=== PATIENT | male | born 1985 | race Caucasian/White ===

== ENCOUNTER 2017-02-04 14:44 | Inpatient (IN) | payer OTHER ==
[2017-02-04 15:52] VITALS: BMI 41.8
--- NOTE | 2017-02-04 18:03 | HP ---
COWS - Scale Resting Pulse: 1= [place] 81-100 Sweatin= Chills/Flushing Restless Observation: 3= Extraneous Movement Pupil Size: 0= Normal to Room Light Bone or Joint Aches: 2= Severe Diffuse Aches Runny Nose/ Eye Tearin= Runny Nose/Eyes GI Upset > 30mins: 2= Nausea/Diarrhea Tremor Observation: 2= Slight Tremor Visible Yawning Observation: 0= None Anxiety or Irritability: 2=Irritable/Anxious Goose Flesh Skin: 0=Smooth Skin COWS Score: [address] [facility] Chief Complaint: withdrawal sx Allergies/Adverse Reactions: Allergies Allergy/AdvReac Type Severity Reaction Status Date / Time No Known Allergies Allergy Verified 02/04/17 16:28 History of Present Illness: 32 years old male with long history of opiate nicotine dependence denies medical denies mental illness is admitted to detox Exam Limitations: No Limitations - Ebola screening Have you traveled outside of the country in the last 21 days: No Have you had contact with anyone from an Ebola affected area: No Have you been sick,other than usual withdrawal symptoms: No Do you have a fever: No - Review of Systems Constitutional: Chills, Changes in sleep, Weight Stable EENT: reports: No Symptoms Reported Respiratory: reports: No Symptoms reported Cardiac: reports: No Symptoms Reported GI: reports: Diarrhea, Nausea, Poor Fluid Intake, Indigestion, Abdominal cramping : reports: No Symptoms Reported Musculoskeletal: reports: Back Pain, Joint Pain, Muscle Pain, Neck Pain Integumentary: reports: Change in Color (both fore arms) Neuro: reports: Tremors Endocrine: reports: No Symptoms Reported Hematology: reports: No Symptoms Reported Psychiatric: reports: Judgement Intact, Mood/Affect Appropiate, Orientated x3 Other Systems: Reviewed and Negative Patient History - Patient Medical History Hx Anemia: No Hx Asthma: No Hx Chronic Obstructive Pulmonary Disease (COPD): No Hx Cancer: No Hx Cardiac Disorders: No Hx Congestive Heart Failure: No Hx Hypertension: No Hx Hypercholesterolemia: No Hx Pacemaker: No HX Cerebrovascular Accident: No Hx Seizures: No Hx Dementia: No Hx Diabetes: No Hx Gastrointestinal Disorders: Yes (Hx of GERD) Hx Liver Disease: No Hx Genitourinary Disorders: No Hx Sexually Transmitted Disorders: No Hx Renal Disease (ESRD): No Hx Thyroid Disease: No Hx Human Immunodeficiency Virus (HIV): No Hx Hepatitis C: No Hx Depression: No Hx Suicide Attempt: No Hx Bipolar Disorder: No Hx Schizophrenia: No - Patient Surgical History Past Surgical History: No - PPD History Previous Implant?: Yes Documented Results: Negative w/o proof Implanted On Prior [facility] Admission?: No PPD to be Administered?: Yes - Smoking Cessation Smoking history: Current every day smoker Have you smoked in the past 12 months: Yes Aproximately how many cigarettes per day: 40 Cigars Per Day: 0 Hx Chewing Tobacco Use: No Initiated information on smoking cessation: Yes 'Breaking Loose' booklet given: 02/04/17 - Substance & Tx. History Hx Alcohol Use: No Hx Substance Use: Yes Substance Use Type: Cocaine, Opiates Hx Substance Use Treatment: Yes - Substances Abused Heroin Route: Injection Frequency: Daily Amount used: 10 BAGS Age of first use: 31 Date of Last Use: 02/04/17 Family Disease History - Family Disease History Family Disease History: Other: Father (mva ) Admission Physical Exam S - Vital Signs Vital Signs: Vital Signs - 24 hr 02/04/17 15:50 Temperature 97.7 F Pulse Rate 92 H Respiratory 22 Rate Blood Pressure 143/90 - Physical General Appearance: Yes: Appropriately Dressed, Mild Distress, Obese, Tremorous , Irritable, Sweating, Anxious HEENTM: Yes: Hearing grossly Normal, Normal ENT Inspection, Normocephalic, Normal Voice Respiratory: Yes: Chest Non-Tender, Lungs Clear, Normal Breath Sounds, No Respiratory Distress, No Accessory Muscle Use Neck: Yes: Supple, Trachea in good position Breast: Yes: Breasts Symetrical Cardiology: Yes: Regular Rhythm, Regular Rate, S1, S2 Abdominal: Yes: Non Tender, Soft Genitourinary: Yes: Within Normal Limits Back: Yes: Normal Inspection Musculoskeletal: Yes: full range of Motion, Gait Steady, Back pain, Muscle Pain Extremities: Yes: Normal Range of Motion, Non-Tender, Tremors Neurological: Yes: Fully Oriented, Alert, Motor Strength 5/5, Normal Response, Depressed Affect Integumentary: Yes: Warm, Track [place] Lymphatic: Yes: Within Normal Limits - Diagnostic (1) Opioid dependence with withdrawal Current Visit: Yes Status: Acute (2) Cocaine dependence, uncomplicated Current Visit: Yes Status: Chronic (3) Nicotine dependence Current Visit: Yes Status: Acute Qualifiers: Nicotine product type: cigarettes Substance use status: in withdrawal Qualified Code(s): F17.213 - Nicotine dependence, cigarettes, with withdrawal (4) GERD (gastroesophageal reflux disease) Current Visit: Yes Status: Chronic Qualifiers: Esophagitis presence: without esophagitis Qualified Code(s): K21.9 - Gastro-esophageal reflux disease without esophagitis Cleared for Admission [facility] - Detox or Rehab [facility] Level of Care: Medically Managed Detox Regimen/Protocol: Methadone S Breath Alcohol Content Breath Alcohol Content: 0 Urine Drug Screen - Results Drug Screen Negative: No Urine Drug Screen Results: ALEC-Cocaine, OPI-Opiates, OXY-Oxycodone
[2017-02-04] MEDS ORDERED: guaiFENesin/D-METHORPHAN HB 10 ML UNIT-DOSE CUPS PO PRN (18:09)
[2017-02-04] MEDS ORDERED: MAG HYDROX/AL HYDROX/SIMETH 30 ML UNIT-DOSE CUP PO PRN (18:09)
[2017-02-04] MEDS ORDERED: MENTHOL/PHENOL 1 EACH UD MM PRN (18:09)
[2017-02-04] MEDS ORDERED: MAGNESIUM CITRATE 300 ML BOTTLE PO PRN (18:09)
[2017-02-04] MEDS ORDERED: ACETAMINOPHEN 325 MG TABLET (FP) PO PRN (18:09)
[2017-02-04] MEDS ORDERED: P-EPHED 60MG/TRIPROLIDI 2.5MG TABLET PO PRN (18:09)
[2017-02-04] MEDS ORDERED: MAGNESIUM HYDROX 2400MG/30ML ORAL SUSPENSION 30 ML CUP PO PRN (18:09)
[2017-02-04] MEDS ORDERED: LOPERAMIDE HCL 2 MG CAPSULE PO PRN (18:09)
[2017-02-04] MEDS ORDERED: METHADONE HCL 10 MG TABLET (FOR DETOX USE ONLY) PO ONE ×2 (18:30→23:00)
[2017-02-04] MEDS: diazePAM 5 MG TABLET PO PRN ×2 (19:37→23:40)
[2017-02-04 22:44] LABS: URINE APPEARANCE CLEAR; URINE BILIRUBIN NEGATIVE (NEGATIVE); URINE BLOOD NEGATIVE (NEGATIVE); URINE COLOR DKYELLOW; URINE GLUCOSE (UA) NEGATIVE (NEGATIVE); URINE KETONE TRACE (NEGATIVE); URINE LEUK ESTERASE NEGATIVE (NEGATIVE); URINE NITRITE NEGATIVE (NEGATIVE); URINE PROTEIN NEGATIVE (NEGATIVE); URINE UROBILINOGEN 2.0 E.U/dl E.U./dl (0.2-1.0)
[2017-02-04] MEDS: RANITIDINE HCL 150 MG TABLET (FP) PO SCH (22:47)
[2017-02-04] MEDS: THIAMINE HCL 100 MG TABLET (FP) PO SCH (22:47)
[2017-02-04] MEDS: NICOTINE POLACRILEX 4 MG GUM BC PRN (23:40)
[2017-02-05] MEDS: diazePAM 5 MG TABLET PO PRN ×5 (04:32→22:37)
--- NOTE | 2017-02-05 08:25 | EKG ---
Test Reason : Blood Pressure : / mmHG Vent. Rate : 069 BPM Atrial Rate : 069 BPM P-R Int : 154 ms QRS Dur : 080 ms QT Int : 382 ms P-R-T Axes : 041 040 031 degrees QTc Int : 409 ms NORMAL SINUS RHYTHM NORMAL ECG NO PREVIOUS ECGS AVAILABLE Confirmed by NIK CRAIN MD ([id number]) on 02/05/2017 8:25:06 AM Referred By: Daniel Silva Confirmed By:NIK CRAIN MD
[2017-02-05] MEDS ORDERED: METHADONE HCL 10 MG TABLET (FOR DETOX USE ONLY) PO ONE (10:00)
[2017-02-05] MEDS: RANITIDINE HCL 150 MG TABLET (FP) PO SCH ×2 (10:24→22:36)
[2017-02-05] MEDS: NICOTINE 21 MG/24 HOURS TOPICAL PATCH TD SCH (10:25)
[2017-02-05] MEDS: PRENATAL VITAMINS W/ FOLIC ACID TABLET (FP) PO SCH (10:25)
--- NOTE | 2017-02-05 11:30 | PN ---
[facility] COWS - Scale Resting Pulse: 1= [place] 81-100 Sweatin= Chills/Flushing Restless Observation: 3= Extraneous Movement Pupil Size: 2= Moderately Dilated Bone or Joint Aches: 4=Acute Joint/Muscle Pain Runny Nose/ Eye Tearin= Nasal Congestion GI Upset > 30mins: 1= Stomach Cramp Tremor Observation of Outstretched Hands: 2= Slight Tremor Visible Yawning Observation: 2= >3x During Session Anxiety or Irritability: 2=Irritable/Anxious Goose Flesh Skin: 0=Smooth Skin COWS Score: 19 BHS Progress Note (SOAP) Subjective: ANXIETY,SWEATS/CHILLS,MUSCLE ACHES, IRRITABILITY--"I FEEL LIKE CRAP". Objective: 02/05/17 11:29 Vital Signs Temperature 98.1 F 02/05/17 10:05 Pulse Rate 93 H 02/05/17 10:05 Respiratory Rate 20 02/05/17 10:05 Blood Pressure 118/77 02/05/17 10:05 O2 Sat by Pulse Oximetry (%) Laboratory Last Values Urine Color Dkyellow 02/04/17 20:00 Urine Appearance Clear 02/04/17 20:00 Urine pH 5.0 (5.0-8.0) 02/04/17 20:00 Ur Specific [place] 1.031 (1.001-1.035) 02/04/17 20:00 Urine Protein Negative (NEGATIVE) 02/04/17 20:00 Urine Glucose (UA) Negative (NEGATIVE) 02/04/17 20:00 Urine Ketones Trace (NEGATIVE) H 02/04/17 20:00 Urine Blood Negative (NEGATIVE) 02/04/17 20:00 Urine Nitrite Negative (NEGATIVE) 02/04/17 20:00 Urine Bilirubin Negative (NEGATIVE) 02/04/17 20:00 Urine Urobilinogen 2.0 e.u/dl E.U./dl (0.2-1.0) 02/04/17 20:00 Ur Leukocyte Esterase Negative (NEGATIVE) 02/04/17 20:00 Assessment: 02/05/17 11:29 WITHDRAWAL SX Plan: CONTINUE DETOX
--- NOTE | 2017-02-05 15:11 | PN ---
[facility] Progress Note Note: Psychiatry Attending's note Approached by patient. Issue : insomnia. Chart reviewed.No history of mental illness. No history of psychiatric hospitalizations.Good general health. Currently addressing opioid,cocaine and nicotine dependence. Mr Mckinney is cognitively intact,conversant and sociable. In good behavioral control.Pleasant on approach.At ease. Detoxification in progress.Well tolerated.Normal vitals. Intervention : Patient is educated about virtues of sleep hygiene and sobriety. Ambien 10 mg po hs prn is ordered at patient's request. Made aware of potential for parasomnias. Patient agrees with this careplan.
[2017-02-05] MEDS: CYCLOBENZAPRINE HCL 10 MG TABLET (FP) PO PRN (20:37)
[2017-02-05] MEDS: cloNIDine HCL 0.1 MG TABLET PO SCH (22:36)
[2017-02-05] MEDS: THIAMINE HCL 100 MG TABLET (FP) PO SCH (22:36)
[2017-02-05] MEDS: ZOLPIDEM TARTRATE 10 MG TABLET (PARK CARE ONLY) PO PRN (22:36)
[2017-02-05] MEDS: NICOTINE POLACRILEX 4 MG GUM BC PRN (22:40)
[2017-02-06] MEDS: diphenhydrAMINE HCL 50 MG CAPSULE PO PRN (00:39)
[2017-02-06] MEDS: diazePAM 5 MG TABLET PO PRN ×6 (02:43→22:49)
[2017-02-06] MEDS: CYCLOBENZAPRINE HCL 10 MG TABLET (FP) PO PRN (05:37)
[2017-02-06] MEDS ORDERED: METHADONE HCL 5 MG TABLET (FOR DETOX USE ONLY) PO ONE (10:00)
[2017-02-06 10:20] LABS: MCH 29.3 pg (25.7-33.7); MEAN PLT VOLUME 9.6 fl (7.5-11.1); PLATELET COUNT 188 K/MM3 (134-434); RDW 13.8 % (11.9-15.9)
[2017-02-06] MEDS: PRENATAL VITAMINS W/ FOLIC ACID TABLET (FP) PO SCH (10:30)
[2017-02-06] MEDS: NICOTINE 21 MG/24 HOURS TOPICAL PATCH TD SCH (10:30)
[2017-02-06] MEDS: cloNIDine HCL 0.1 MG TABLET PO SCH ×2 (10:32→22:50)
[2017-02-06] MEDS: RANITIDINE HCL 150 MG TABLET (FP) PO SCH ×2 (10:32→22:50)
[2017-02-06 10:47] LABS: ALBUMIN 3.7 g/dl (3.4-5.0); ALK PHOS 87 U/L (45-117); ANION GAP 13 (8-16); CALCIUM 9.4 mg/dL (8.5-10.1); CO2 25 mmol/L (21-32); CREATININE 1.1 mg/dL (0.7-1.3); GLUCOSE,RANDOM 100 mg/dL (74-106); SGOT/AST 18 U/L (15-37); SGPT/ALT 30 U/L (12-78); TOT PROT 7.8 g/dl (6.4-8.2)
--- NOTE | 2017-02-06 11:32 | CONSULT ---
[facility] Psychiatric Consult - Data Date of interview: 02/06/17 Admission source: [facility] Identifying data: This is 32 years old obese male with no psychiatric hospitalization history intoxicated with Heroin, Nicotine, history of Cocaine abuse as well Substance Abuse History: - Smoking Cessation. Smoking history: Current every day smoker. Have you smoked in the past 12 months: Yes. Aproximately how many cigarettes per day: 40. Cigars Per Day: 0. Hx Chewing Tobacco Use: No. Initiated information on smoking cessation: Yes. 'Breaking Loose' booklet given : 02/04/17. - Substance & Tx. History. Hx Alcohol Use: No. Hx Substance Use: Yes. Substance Use Type: Cocaine, Opiates. Hx Substance Use Treatment: Yes. - Substances Abused. Heroin. Route: Injection. Frequency: Daily. Amount used: 10 BAGS. Age of first use: 31. Date of Last Use: 02/04/17 Medical History: GERD, morbid obesity Psychiatric History: Patient reports insomnia, reports Ambien 10mg is not helpful, asking for pharmacological aid Physical/Sexual Abuse/Trauma History: Denies Additional Comment: Seroquel 100mg po qhs Mental Status Exam - Mental Status Exam Alert and Oriented to: Person Cognitive Function: Fair Patient Appearance: Unkempt Mood: Anxious Affect: Mood Congruent Patient Behavior: Cooperative Speech Pattern: Appropriate Voice Loudness: Normal Thought Process: Goal Oriented Thought Disorder: Being Controlled Hallucinations: Denies Suicidal Ideation: Denies Homicidal Ideation: Denies Insight/Judgement: Fair Sleep: Difficulty falling asleep Appetite: Weight gain Muscle strength/Tone: Mild Hypotonicity Gait/Station: Shuffling Additional Comments: Seroquel 100mg po qhs Psychiatric Findings - Problem List ([place] 1, 2,3) (1) Nicotine dependence Current Visit: Yes Status: Acute Qualifiers: Nicotine product type: cigarettes Substance use status: in withdrawal Qualified Code(s): F17.213 - Nicotine dependence, cigarettes, with withdrawal (2) Opioid dependence with withdrawal Current Visit: Yes Status: Acute (3) Cocaine dependence, uncomplicated Current Visit: Yes Status: Chronic (4) Drug-induced mood disorder Current Visit: Yes Status: Acute (5) Opioid-induced sleep disorder, insomnia type, with onset during discontinuation/withdrawal Current Visit: Yes Status: Acute - Initial Treatment Plan Initial Treatment Plan: Seroquel 100mg po qhs
--- NOTE | 2017-02-06 12:23 | PN ---
BHS COWS - Scale Resting Pulse: 1= [place] 81-100 Sweatin= Chills/Flushing Restless Observation: 3= Extraneous Movement Pupil Size: 2= Moderately Dilated Bone or Joint Aches: 4=Acute Joint/Muscle Pain Runny Nose/ Eye Tearin= Nasal Congestion GI Upset > 30mins: 1= Stomach Cramp Tremor Observation of Outstretched Hands: 1= Tremor [place], Not Seen Yawning Observation: 1= 1-2x During Session Anxiety or Irritability: 2=Irritable/Anxious Goose Flesh Skin: 0=Smooth Skin COWS Score: 17 BHS Progress Note (SOAP) Subjective: ANXIETY,IRRITABILITY,SWEATS,INTERMITTENT SLEEP Objective: 02/06/17 12:22 Vital Signs Temperature 97.9 F 02/06/17 06:48 Pulse Rate 83 02/06/17 06:48 Respiratory Rate 18 02/06/17 06:48 Blood Pressure 111/76 02/06/17 06:48 O2 Sat by Pulse Oximetry (%) Laboratory Last Values WBC 7.0 K/mm3 (4.0-10.0) 02/06/17 07:00 RBC 4.93 M/mm3 (4.00-5.60) 02/06/17 07:00 Hgb 14.4 GM/dL (11.7-16.9) 02/06/17 07:00 Hct 42.4 % (35.4-49) 02/06/17 07:00 MCV 86.0 fl (80-96) 02/06/17 07:00 MCHC 34.0 g/dl (32.0-35.9) 02/06/17 07:00 RDW 13.8 % (11.9-15.9) 02/06/17 07:00 Plt Count 188 K/MM3 (134-434) 02/06/17 07:00 MPV 9.6 fl (7.5-11.1) 02/06/17 07:00 Sodium 140 mmol/L (136-145) 02/06/17 07:00 Potassium 3.5 mmol/L (3.5-5.1) 02/06/17 07:00 Chloride 102 mmol/L (98-107) 02/06/17 07:00 Carbon Dioxide 25 mmol/L (21-32) 02/06/17 07:00 Anion Gap 13 (8-16) 02/06/17 07:00 BUN 11 mg/dL (7-18) 02/06/17 07:00 Creatinine 1.1 mg/dL (0.7-1.3) 02/06/17 07:00 Creat Clearance w eGFR > 60 (>60) 02/06/17 07:00 Random Glucose 100 mg/dL (74-106) 02/06/17 07:00 Calcium 9.4 mg/dL (8.5-10.1) 02/06/17 07:00 Total Bilirubin 1.0 mg/dL (0.2-1.0) 02/06/17 07:00 AST 18 U/L (15-37) 02/06/17 07:00 ALT 30 U/L (12-78) 02/06/17 07:00 Alkaline Phosphatase 87 U/L (45-117) 02/06/17 07:00 Total Protein 7.8 g/dl (6.4-8.2) 02/06/17 07:00 Albumin 3.7 g/dl (3.4-5.0) 02/06/17 07:00 Urine Color Dkyellow 02/04/17 20:00 Urine Appearance Clear 02/04/17 20:00 Urine pH 5.0 (5.0-8.0) 02/04/17 20:00 Ur Specific [place] 1.031 (1.001-1.035) 02/04/17 20:00 Urine Protein Negative (NEGATIVE) 02/04/17 20:00 Urine Glucose (UA) Negative (NEGATIVE) 02/04/17 20:00 Urine Ketones Trace (NEGATIVE) H 02/04/17 20:00 Urine Blood Negative (NEGATIVE) 02/04/17 20:00 Urine Nitrite Negative (NEGATIVE) 02/04/17 20:00 Urine Bilirubin Negative (NEGATIVE) 02/04/17 20:00 Urine Urobilinogen 2.0 e.u/dl E.U./dl (0.2-1.0) 02/04/17 20:00 Ur Leukocyte Esterase Negative (NEGATIVE) 02/04/17 20:00 RPR Titer Nonreactive (NONREACTIVE) 02/06/17 07:00 Assessment: 02/06/17 12:23 WITHDRAWAL SX Plan: CONTINUE DETOX
[2017-02-06] MEDS: NICOTINE POLACRILEX 4 MG GUM BC PRN (15:28)
[2017-02-06] MEDS: ZOLPIDEM TARTRATE 10 MG TABLET (PARK CARE ONLY) PO PRN (22:49)
[2017-02-06] MEDS: THIAMINE HCL 100 MG TABLET (FP) PO SCH (22:49)
[2017-02-06] MEDS: QUEtiapine FUMARATE 100 MG TABLET (FP) PO SCH (22:50)
[2017-02-07] MEDS: diazePAM 5 MG TABLET PO PRN ×4 (05:07→17:56)
[2017-02-07] MEDS ORDERED: METHADONE HCL 5 MG TABLET (FOR DETOX USE ONLY) PO ONE (10:00)
[2017-02-07] MEDS: cloNIDine HCL 0.1 MG TABLET PO SCH ×2 (10:35→22:26)
[2017-02-07] MEDS: NICOTINE 21 MG/24 HOURS TOPICAL PATCH TD SCH (10:35)
[2017-02-07] MEDS: PRENATAL VITAMINS W/ FOLIC ACID TABLET (FP) PO SCH (10:35)
[2017-02-07] MEDS: RANITIDINE HCL 150 MG TABLET (FP) PO SCH ×2 (10:36→22:26)
--- NOTE | 2017-02-07 10:55 | PN ---
BHS Progress Note (SOAP) Subjective: Sweating,interrupted sleep,restless Objective: 02/07/17 10:53 Vital Signs - 8 hr 02/07/17 02/07/17 02/07/17 03:35 06:43 09:29 Temperature 96.4 F L 96.8 F L Pulse Rate 89 88 Respiratory 18 18 18 Rate Blood Pressure 113/76 111/73 Laboratory Last Values WBC 7.0 K/mm3 (4.0-10.0) 02/06/17 07:00 RBC 4.93 M/mm3 (4.00-5.60) 02/06/17 07:00 Hgb 14.4 GM/dL (11.7-16.9) 02/06/17 07:00 Hct 42.4 % (35.4-49) 02/06/17 07:00 MCV 86.0 fl (80-96) 02/06/17 07:00 MCHC 34.0 g/dl (32.0-35.9) 02/06/17 07:00 RDW 13.8 % (11.9-15.9) 02/06/17 07:00 Plt Count 188 K/MM3 (134-434) 02/06/17 07:00 MPV 9.6 fl (7.5-11.1) 02/06/17 07:00 Sodium 140 mmol/L (136-145) 02/06/17 07:00 Potassium 3.5 mmol/L (3.5-5.1) 02/06/17 07:00 Chloride 102 mmol/L (98-107) 02/06/17 07:00 Carbon Dioxide 25 mmol/L (21-32) 02/06/17 07:00 Anion Gap 13 (8-16) 02/06/17 07:00 BUN 11 mg/dL (7-18) 02/06/17 07:00 Creatinine 1.1 mg/dL (0.7-1.3) 02/06/17 07:00 Creat Clearance w eGFR > 60 (>60) 02/06/17 07:00 Random Glucose 100 mg/dL (74-106) 02/06/17 07:00 Calcium 9.4 mg/dL (8.5-10.1) 02/06/17 07:00 Total Bilirubin 1.0 mg/dL (0.2-1.0) 02/06/17 07:00 AST 18 U/L (15-37) 02/06/17 07:00 ALT 30 U/L (12-78) 02/06/17 07:00 Alkaline Phosphatase 87 U/L (45-117) 02/06/17 07:00 Total Protein 7.8 g/dl (6.4-8.2) 02/06/17 07:00 Albumin 3.7 g/dl (3.4-5.0) 02/06/17 07:00 Urine Color Dkyellow 02/04/17 20:00 Urine Appearance Clear 02/04/17 20:00 Urine pH 5.0 (5.0-8.0) 02/04/17 20:00 Ur Specific [place] 1.031 (1.001-1.035) 02/04/17 20:00 Urine Protein Negative (NEGATIVE) 02/04/17 20:00 Urine Glucose (UA) Negative (NEGATIVE) 02/04/17 20:00 Urine Ketones Trace (NEGATIVE) H 02/04/17 20:00 Urine Blood Negative (NEGATIVE) 02/04/17 20:00 Urine Nitrite Negative (NEGATIVE) 02/04/17 20:00 Urine Bilirubin Negative (NEGATIVE) 02/04/17 20:00 Urine Urobilinogen 2.0 e.u/dl E.U./dl (0.2-1.0) 02/04/17 20:00 Ur Leukocyte Esterase Negative (NEGATIVE) 02/04/17 20:00 RPR Titer Nonreactive (NONREACTIVE) 02/06/17 07:00 Hepatitis C Antibody 0.1 s/co ratio (0.0-0.9) 02/06/17 07:00 labs noted Assessment: 02/07/17 10:54 withdrawal sx. Plan: continue detox
[2017-02-07] MEDS: NICOTINE POLACRILEX 4 MG GUM BC PRN ×4 (12:23→22:27)
[2017-02-07] MEDS: ZOLPIDEM TARTRATE 10 MG TABLET (PARK CARE ONLY) PO PRN (22:26)
[2017-02-07] MEDS: QUEtiapine FUMARATE 100 MG TABLET (FP) PO SCH (22:26)
[2017-02-07] MEDS: THIAMINE HCL 100 MG TABLET (FP) PO SCH (22:26)
[2017-02-07] MEDS: diphenhydrAMINE HCL 50 MG CAPSULE PO PRN (23:35)
[2017-02-08] MEDS ORDERED: METHADONE HCL 10 MG TABLET (FOR DETOX USE ONLY) PO ONE (10:00)
[2017-02-08] MEDS: RANITIDINE HCL 150 MG TABLET (FP) PO SCH ×2 (10:34→22:31)
[2017-02-08] MEDS: cloNIDine HCL 0.1 MG TABLET PO SCH ×2 (10:34→22:31)
[2017-02-08] MEDS: PRENATAL VITAMINS W/ FOLIC ACID TABLET (FP) PO SCH (10:34)
[2017-02-08] MEDS: CYCLOBENZAPRINE HCL 10 MG TABLET (FP) PO PRN ×2 (10:34→17:37)
[2017-02-08] MEDS: NICOTINE 21 MG/24 HOURS TOPICAL PATCH TD SCH (10:34)
[2017-02-08] MEDS: NICOTINE POLACRILEX 4 MG GUM BC PRN ×3 (11:24→20:42)
--- NOTE | 2017-02-08 16:10 | PN ---
S Progress Note (SOAP) Subjective: Interrupted Sleep, Tremors, Sweating, Poor Appetite. Objective: PT. A & O X 3. 02/08/17 16:09 Vital Signs Temperature 98.4 F 02/08/17 13:48 Pulse Rate 91 H 02/08/17 13:48 Respiratory Rate 18 02/08/17 13:48 Blood Pressure 108/72 02/08/17 13:48 O2 Sat by Pulse Oximetry (%) Laboratory Last Values WBC 7.0 K/mm3 (4.0-10.0) 02/06/17 07:00 RBC 4.93 M/mm3 (4.00-5.60) 02/06/17 07:00 Hgb 14.4 GM/dL (11.7-16.9) 02/06/17 07:00 Hct 42.4 % (35.4-49) 02/06/17 07:00 MCV 86.0 fl (80-96) 02/06/17 07:00 MCHC 34.0 g/dl (32.0-35.9) 02/06/17 07:00 RDW 13.8 % (11.9-15.9) 02/06/17 07:00 Plt Count 188 K/MM3 (134-434) 02/06/17 07:00 MPV 9.6 fl (7.5-11.1) 02/06/17 07:00 Sodium 140 mmol/L (136-145) 02/06/17 07:00 Potassium 3.5 mmol/L (3.5-5.1) 02/06/17 07:00 Chloride 102 mmol/L (98-107) 02/06/17 07:00 Carbon Dioxide 25 mmol/L (21-32) 02/06/17 07:00 Anion Gap 13 (8-16) 02/06/17 07:00 BUN 11 mg/dL (7-18) 02/06/17 07:00 Creatinine 1.1 mg/dL (0.7-1.3) 02/06/17 07:00 Creat Clearance w eGFR > 60 (>60) 02/06/17 07:00 Random Glucose 100 mg/dL (74-106) 02/06/17 07:00 Calcium 9.4 mg/dL (8.5-10.1) 02/06/17 07:00 Total Bilirubin 1.0 mg/dL (0.2-1.0) 02/06/17 07:00 AST 18 U/L (15-37) 02/06/17 07:00 ALT 30 U/L (12-78) 02/06/17 07:00 Alkaline Phosphatase 87 U/L (45-117) 02/06/17 07:00 Total Protein 7.8 g/dl (6.4-8.2) 02/06/17 07:00 Albumin 3.7 g/dl (3.4-5.0) 02/06/17 07:00 Urine Color Dkyellow 02/04/17 20:00 Urine Appearance Clear 02/04/17 20:00 Urine pH 5.0 (5.0-8.0) 02/04/17 20:00 Ur Specific [place] 1.031 (1.001-1.035) 02/04/17 20:00 Urine Protein Negative (NEGATIVE) 02/04/17 20:00 Urine Glucose (UA) Negative (NEGATIVE) 02/04/17 20:00 Urine Ketones Trace (NEGATIVE) H 02/04/17 20:00 Urine Blood Negative (NEGATIVE) 02/04/17 20:00 Urine Nitrite Negative (NEGATIVE) 02/04/17 20:00 Urine Bilirubin Negative (NEGATIVE) 02/04/17 20:00 Urine Urobilinogen 2.0 e.u/dl E.U./dl (0.2-1.0) 02/04/17 20:00 Ur Leukocyte Esterase Negative (NEGATIVE) 02/04/17 20:00 RPR Titer Nonreactive (NONREACTIVE) 02/06/17 07:00 Hepatitis C Antibody 0.1 s/co ratio (0.0-0.9) 02/06/17 07:00 LABS NOTED. Assessment: 02/08/17 16:10 WITHDRAWAL SYMPTOMS. Plan: CONTINUE DETOX. ADVISED PATIENT TO FOLLOW-UP WITH CORPORATE TAX MANAGER / REHAB MEDICAL PROVIDER AFTER DISCHARGE FROM DETOX FOR GENERAL MEDICAL ASSESSMENT.
[2017-02-08] MEDS: QUEtiapine FUMARATE 100 MG TABLET (FP) PO SCH (22:31)
[2017-02-08] MEDS: diphenhydrAMINE HCL 50 MG CAPSULE PO PRN (22:31)
[2017-02-08] MEDS: THIAMINE HCL 100 MG TABLET (FP) PO SCH (22:31)
[2017-02-09] MEDS: CYCLOBENZAPRINE HCL 10 MG TABLET (FP) PO PRN (05:51)
[2017-02-09] MEDS ORDERED: METHADONE HCL 5 MG TABLET (FOR DETOX USE ONLY) PO ONE (06:00)
[2017-02-09 06:19] VITALS: BP 110/69; PULSE 86; TEMP 96.5
--- NOTE | 2017-02-09 12:16 | DS ---
[facility] Detox Discharge Summary Admission Date: 02/04/17 Discharge Date: 02/09/17 - History Present History: Opioid Dependence Pertinent Past History: GERD - Physical Exam Results Vital Signs: Vital Signs Temperature 96.5 F L 02/09/17 06:19 Pulse Rate 86 02/09/17 06:19 Respiratory Rate 18 02/09/17 06:19 Blood Pressure 110/69 02/09/17 06:19 O2 Sat by Pulse Oximetry (%) Pertinent Admission Physical Exam Findings: Withdrawal symptoms Laboratory Tests 02/04/17 02/06/17 02/06/17 20:00 07:00 07:00 WBC 7.0 RBC 4.93 Hgb 14.4 Hct 42.4 MCV 86.0 MCHC 34.0 RDW 13.8 Plt Count 188 MPV 9.6 Sodium Potassium Chloride Carbon Dioxide Anion Gap BUN Creatinine Creat Clearance w eGFR Random Glucose Calcium Total Bilirubin AST ALT Alkaline Phosphatase Total Protein Albumin Urine Color Dkyellow Urine Appearance Clear Urine pH 5.0 Ur Specific [place] 1.031 Urine Protein Negative Urine Glucose (UA) Negative Urine Ketones Trace H Urine Blood Negative Urine Nitrite Negative Urine Bilirubin Negative Urine Urobilinogen 2.0 e.u/dl Ur Leukocyte Esterase Negative RPR Titer Hepatitis C Antibody 0.1 02/06/17 02/06/17 07:00 07:00 WBC RBC Hgb Hct MCV MCHC RDW Plt Count MPV Sodium 140 Potassium 3.5 Chloride 102 Carbon Dioxide 25 Anion Gap 13 BUN 11 Creatinine 1.1 Creat Clearance w eGFR > 60 Random Glucose 100 Calcium 9.4 Total Bilirubin 1.0 AST 18 ALT 30 Alkaline Phosphatase 87 Total Protein 7.8 Albumin 3.7 Urine Color Urine Appearance Urine pH Ur Specific [place] Urine Protein Urine Glucose (UA) Urine Ketones Urine Blood Urine Nitrite Urine Bilirubin Urine Urobilinogen Ur Leukocyte Esterase RPR Titer Nonreactive Hepatitis C Antibody Labs noted - Treatment Hospital Course: Detox Protocol Followed, Detoxed Safely, Responded well, Discharged Condition Good - Medication Discharge Medications: Ambulatory Orders Quetiapine Fumarate [Seroquel] 100 mg PO HS #30 tablet 02/06/17 - Diagnosis (1) Nicotine dependence Status: Chronic Qualifiers: Nicotine product type: cigarettes Substance use status: in withdrawal Qualified Code(s): F17.213 - Nicotine dependence, cigarettes, with withdrawal (2) Opioid dependence with withdrawal Status: Acute (3) GERD (gastroesophageal reflux disease) Status: Chronic Qualifiers: Esophagitis presence: without esophagitis Qualified Code(s): K21.9 - Gastro-esophageal reflux disease without esophagitis - AMA Did Patient Leave Against Medical Advice: No
== END 2017-02-09 06:35 | disposition home or self-care (01) | DRG 773 ==
LOC: YASAS 14:44 → Y3N 17:15
PROVIDERS: ADMIT Internal Medicine; ATTEND Internal Medicine
PROC: HZ2ZZZZ Detoxification Services for Substance Abuse Treatment (ICD-10-PCS; principal; 2017-02-09)
DX: F11.23 Opioid dependence with withdrawal (principal); F14.20 Cocaine dependence, uncomplicated; F17.210 Nicotine dependence, cigarettes, uncomplicated; F19.282 Other psychoactive substance dependence with psychoactive substance-induced sleep disorder; F19.24 Other psychoactive substance dependence with psychoactive substance-induced mood disorder; K21.9 Gastro-esophageal reflux disease without esophagitis
CPT/HCPCS: 36415; 80053; 81003; 85027; 86593; 93005; 93010